=== PATIENT | female | born 1945 | race Caucasian/White ===

== ENCOUNTER → 2017-04-01 | Outpatient (CLI) | payer MEDICARE, OTHER | LOC: OPSV 16:00 | DX: T84.7XXA Infection and inflammatory reaction due to other internal orthopedic prosthetic devices, implants and grafts, initial encounter (principal) | CPT/HCPCS: G0463 ==

== ENCOUNTER 2021-03-31 12:05 | Inpatient (IN) | payer MEDICARE, OTHER ==
[~2021-03-31] VITALS: Ht 160 cm; Wt 90.7 kg
[2021-03-31 12:50] LABS: HEMOGLOBIN 15.1 gm/dl (12.3-15.3); RED BLOOD COUNT 4.94 M/UL (4.00-5.10); WHITE BLOOD COUNT 13.2 K/UL (4.5-11.0)
[2021-03-31 13:19] LABS: BUN/CREATININE RATIO 16 (0-10)
[2021-03-31] MEDS ORDERED: TAPAZOLE5 MG PO (15:17)
[2021-03-31] MEDS ORDERED: PLAVIX 75 MG TA75 MG PO (15:17)
[2021-03-31] MEDS ORDERED: EFFEXOR XR75 MG PO (15:17)
[2021-03-31] MEDS ORDERED: DILTIAZEM ER120 M1 PO (15:18)
[2021-03-31] MEDS ORDERED: CYMBALTA60 MG PO (15:18)
[2021-03-31] MEDS ORDERED: LIPITOR40 MG PO (15:18)
[2021-03-31] MEDS ORDERED: PERCOCET 10-321 EACH PO (15:19)
[2021-03-31] MEDS ORDERED: LASIX40 MG PO (15:19)
[2021-03-31] MEDS ORDERED: AMARYL4 MG PO (15:19)
[2021-03-31] MEDS ORDERED: PROTONIX 40 MG40 M1 PO (15:20)
[2021-03-31] MEDS ORDERED: ELIQUIS 5 MG TAB5 MG PO (15:21)
[2021-03-31] MEDS ORDERED: CELEXA40 MG PO (15:22)
[2021-03-31] MEDS ORDERED: ZESTRIL20 MG PO (15:22)
[2021-03-31] MEDS ORDERED: CYCLOBENZAPRINE10 MG PO (15:23)
[2021-03-31] MEDS ORDERED: MOBIC7.5 MG PO (15:24)
[2021-03-31] MEDS ORDERED: AMITIZA 24 MCG24 MCG PO (15:24)
[2021-03-31] MEDS ORDERED: TYLENOL325 MG PO (15:53)
[2021-03-31] MEDS ORDERED: NOVOLIN 70100 UNIT/1 SC (15:55)
[2021-03-31] MEDS ORDERED: STOOL SOFTENER240 MG PO (15:56)
[2021-03-31] MEDS ORDERED: SENNA S TABLET1 EACH PO (15:56)
[2021-03-31] MEDS ORDERED: BENADRYL25 MG PO (15:57)
[2021-03-31] MEDS ORDERED: MYCOSTATIN100000 UTS PO (15:59)
[2021-04-01 00:42] LABS: HEMOGLOBIN 13.7 gm/dl (12.3-15.3); RED BLOOD COUNT 4.56 M/UL (4.00-5.10)
[2021-04-01 00:47] LABS: WHITE BLOOD COUNT 8.7 K/UL (4.5-11.0)
[2021-04-01 01:19] LABS: BUN/CREATININE RATIO 14 (0-10)
--- NOTE | 2021-04-01 02:00 | NUR ---
PT EKG SHOWED THAT PT RHYTHM CHANGED TO AFIB WITH RVR. NOTIFIED DR COURTNEY AND RECIEVED ORDERS FOR CARDIZEM DRIP AND TO TRANSFER TO PCU. NOTIFIED CARITO JAIMERESPIRATORY THERAPY ASSISTANT. PT TO BE TRANSFERRED TO ROOM 6110. WILL CONTINUE TO MONITOR.
[2021-04-02 03:22] LABS: HEMOGLOBIN 13.6 gm/dl (12.3-15.3); RED BLOOD COUNT 4.54 M/UL (4.00-5.10); WHITE BLOOD COUNT 9.6 K/UL (4.5-11.0)
[2021-04-02 03:44] LABS: BUN/CREATININE RATIO 15 (0-10)
[2021-04-03 02:46] LABS: RED BLOOD COUNT 4.37 M/UL (4.00-5.10); WHITE BLOOD COUNT 7.8 K/UL (4.5-11.0)
[2021-04-03 03:10] LABS: BUN/CREATININE RATIO 13 (0-10)
[2021-04-04] MEDS ORDERED: LEVOFLOXACIN500 MG PO (10:51)
[2021-04-04] MEDS ORDERED: KEFLEX CAP 250250 MG PO (10:51)
[2021-04-04] MEDS ORDERED: DILTIAZEM 24HR180 M1 PO (10:51)
== END 2021-04-04 13:45 | disposition home health service (06) | DRG 988 ==
LOC: ER1 12:05 → PROG CARE 14:47 → CDU 14:47 → MED SURG 4 16:03 → PROG CARE 04-01 02:04
PROVIDERS: Obstetrics & Gynecology; Physician Assistant; ADMIT Internal Medicine
PROC: 0UDB7ZZ Extraction of Endometrium, Via Natural or Artificial Opening (ICD-10-PCS; principal; 2021-04-02 14:07)
DX: I48.0 Paroxysmal atrial fibrillation (principal); T83.518A Infection and inflammatory reaction due to other urinary catheter, initial encounter; N39.0 Urinary tract infection, site not specified; N89.8 Other specified noninflammatory disorders of vagina; B96.20 Unspecified Escherichia coli [E. coli] as the cause of diseases classified elsewhere; Z20.822 Contact with and (suspected) exposure to COVID-19; Y84.6 Urinary catheterization as the cause of abnormal reaction of the patient, or of later complication, without mention of misadventure at the time of the procedure; I10 Essential (primary) hypertension; E05.90 Thyrotoxicosis, unspecified without thyrotoxic crisis or storm; B96.89 Other specified bacterial agents as the cause of diseases classified elsewhere; N71.9 Inflammatory disease of uterus, unspecified; Z96.651 Presence of right artificial knee joint; Z96.641 Presence of right artificial hip joint; I25.10 Atherosclerotic heart disease of native coronary artery without angina pectoris; N95.0 Postmenopausal bleeding; I44.7 Left bundle-branch block, unspecified; E11.65 Type 2 diabetes mellitus with hyperglycemia; E66.9 Obesity, unspecified; R00.1 Bradycardia, unspecified; Z98.61 Coronary angioplasty status; Z86.73 Personal history of transient ischemic attack (TIA), and cerebral infarction without residual deficits; Z74.01 Bed confinement status; Z87.440 Personal history of urinary (tract) infections; Z88.6 Allergy status to analgesic agent; Z88.8 Allergy status to other drugs, medicaments and biological substances; Z90.49 Acquired absence of other specified parts of digestive tract; Z98.51 Tubal ligation status; Z80.9 Family history of malignant neoplasm, unspecified; Z98.1 Arthrodesis status; Z68.39 Body mass index [BMI] 39.0-39.9, adult
CPT/HCPCS: 0240U; 36415; 71045; 76830; 80048; 80053; 81001; 82550; 82553; 82962; 83735; 83874; 83880; 84132; 84439; 84443; 84484; 85025; 85610; 87070; 87075; 87077; 87086; 87186; 87205; 87210; 93005; 96365; 96374; 96375; 96376; 99285; G0378; J0696; J1100; J1335; J2001; J2405; J2704; J2765; J3010; J3475; J7120

== ENCOUNTER 2021-05-02 23:20 | Emergency (ER) | payer MEDICARE, OTHER ==
[~2021-05-02 23:20] MED LIST: AMARYL4 MG PO; AMITIZA 24 MCG24 MCG PO; BENADRYL25 MG PO; CELEXA40 MG PO; CYCLOBENZAPRINE10 MG PO; CYMBALTA60 MG PO; DILTIAZEM 24HR180 M1 PO; DILTIAZEM ER120 M1 PO; EFFEXOR XR75 MG PO; ELIQUIS 5 MG TAB5 MG PO; KEFLEX CAP 250250 MG PO; LASIX40 MG PO; LEVOFLOXACIN500 MG PO; LIPITOR40 MG PO; MOBIC7.5 MG PO; MYCOSTATIN100000 UTS PO; NOVOLIN 70100 UNIT/1 SC; PERCOCET 10-321 EACH PO; PLAVIX 75 MG TA75 MG PO; PROTONIX 40 MG40 M1 PO; SENNA S TABLET1 EACH PO; STOOL SOFTENER240 MG PO; TAPAZOLE5 MG PO; TYLENOL325 MG PO; ZESTRIL20 MG PO
[2021-05-03 00:39] LABS: RED BLOOD COUNT 4.55 M/UL (4.00-5.10); WHITE BLOOD COUNT 13.6 K/UL (4.5-11.0)
[2021-05-03 00:41] LABS: BUN/CREATININE RATIO 19 (0-10)
== END 2021-05-03 05:25 | disposition home or self-care (01) ==
LOC: ER1 23:20
PROVIDERS: Physician Assistant
DX: R07.9 Chest pain, unspecified (principal); I48.91 Unspecified atrial fibrillation; I10 Essential (primary) hypertension; E03.9 Hypothyroidism, unspecified; Z86.73 Personal history of transient ischemic attack (TIA), and cerebral infarction without residual deficits; Z79.82 Long term (current) use of aspirin; Z79.01 Long term (current) use of anticoagulants; Z79.899 Other long term (current) drug therapy
CPT/HCPCS: 71045; 80053; 82550; 82553; 83874; 84484; 85025; 93005; 99285